=== PATIENT | female | born 1940 | race Caucasian/White ===

== ENCOUNTER 2021-09-08 15:35 | Emergency (ER) | payer MEDICARE, BC ==
[~2021-09-08] VITALS: Ht 175.2 cm; Wt 115.7 kg
[~2021-09-08 15:35] MED LIST: DAYPRO600 M1 PO; VICODIN 500 MG-1 TAB PO
[2021-09-08] MEDS ORDERED: OXYCODON-ACETA1 EAC1 PO (20:00)
== END 2021-09-08 21:49 | disposition home or self-care (01) ==
LOC: ED 15:35
DX: S42.252A Displaced fracture of greater tuberosity of left humerus, initial encounter for closed fracture (principal); W18.39XA Other fall on same level, initial encounter; Y93.89 Activity, other specified; Y92.89 Other specified places as the place of occurrence of the external cause; Y99.8 Other external cause status